=== PATIENT | male | born 1995 | race Caucasian/White ===

== ENCOUNTER 2017-04-07 23:39 | Emergency (ER) | payer BC, OTHER ==
[~2017-04-07] VITALS: Ht 188 cm; Wt 86.7 kg
[2017-04-07 23:43] VITALS: TEMP 36.5; Ht 188 cm; Wt 86.7 kg
[2017-04-08 00:01] VITALS: O2SAT 100
[2017-04-08 01:06] LABS: BUN/CREATININE RATIO 9.1 (10-20); CALCIUM 8.6 mg/dl (8.5-10.1); CREATININE 0.92 mg/dl (0.60-1.40); POTASSIUM 3.5 mmol/L (3.5-5.1)
[2017-04-08 06:21] VITALS: BP 96/50; PULSE 85; O2SAT 95
--- NOTE | 2017-04-08 06:35 | EMERGENCY ROOM VISIT NOTE ---
History Report prepared by Bree: Torie Gilliam Under the Supervision of: Dr. Marta Khoury D.O. First contact with patient: 23:36 Stated Complaint: ALCOHOL History of Present Illness The patient is a 21 year old male who presents to the Emergency Room with complaints of an episode of alcohol overdose occurring this evening. Per EMS, they were called to the [facility] for someone vomiting outside. EMS states that when they arrived he was there, but they do not believe he was the one that had been vomiting. The patient states that he drank four four locos. The patient denies vomiting, smoking, taking any drugs, and abdominal pain. HPI is limited secondary to alcohol intoxication. Source of History: patient, EMS History Limited By: intoxication Onset: this evening Position: other (global) Quality: other (global) Timing: other (episode) Associated Symptoms: No vomiting, No abdominal pain Review of Systems See HPI for pertinent positives & negatives. A total of 10 systems reviewed and were otherwise negative. Past Medical & Surgical Medical Problems: (1) No Known Active Medical Problems Family History No pertinent family history Social History Smoking Status: Never Smoker Alcohol Use: occasionally Drug Use: none Marital Status: single Housing Status: lives with roommate Occupation Status: [employer] Current/Historical Medications Unable to Obtain Active Prescriptions or Reported Meds Physical Exam Vital Signs Date Time Temp Pulse Resp B/P (MAP) Pulse Ox O2 Delivery O2 Flow Rate FiO2 04/08/17 06:21 85 18 96/50 95 Room Air 04/08/17 05:37 87 18 109/52 95 Room Air 04/08/17 04:00 71 04/08/17 03:36 79 18 122/72 98 Room Air 04/08/17 02:34 90 16 133/97 98 Room Air 04/08/17 01:19 117 16 141/86 96 Room Air 04/08/17 00:55 107 16 136/95 95 Room Air 04/08/17 00:01 100 Room Air 04/08/17 00:00 118 04/07/17 23:43 36.5 128 20 177/111 98 Room Air Physical Exam General: Confused, smells of alcohol, slightly uncooperative HEENT: Head - normocephalic and atraumatic Pupils are equal, round, 4 mm and sluggishly reactive to light. Extraocular eye muscles are intact, and sclera are anicteric. Nose - moist nasal mucosa without discharge. Mouth - moist buccal mucosa. Oropharynx is nonerythematous and there is no tonsillar exudate or edema noted. Neck: Supple; no JVD, nuchal rigidity, cervical lymphadenopathy. Heart: Tachycardic rate and regular rhythm. There is a normal S1 and S2 with no murmurs, clicks, or gallops appreciated. Lungs: Clear to auscultation bilaterally with no wheezes, rales, or rhonchi. Abdomen: Soft, completely nontender, nondistended, with good bowel sounds. There are no palpable pulsatile masses or hepatosplenomegaly. There is no guarding, rigidity, or rebound noted. Extremities: No evidence of cyanosis, clubbing, or edema. There are easily palpable peripheral pulses. Skin: warm and dry with good turgor and no rashes. Medical Decision & Procedures Laboratory Results 04/08/17 00:18 Test 04/08/17 00:18 Anion Gap 7.0 mmol/L (3-11) Est Creatinine Clear Calc Drug Dose 147.7 ml/min Estimated GFR () 137.3 Estimated GFR (Non- 118.5 BUN/Creatinine Ratio 9.1 (10-20) Calcium Level 8.6 mg/dl (8.5-10.1) Ethyl Alcohol mg/dL 373.0 mg/dl (0-3) Laboratory results per my review. ED Course 2339: Past medical records reviewed. The patient was evaluated in room A11B. A complete history and physical exam was performed. Labs were drawn as above. We made multiple attempts to attach the patient is a air sampling and monitoring and pulse oximeter but he refused. He also refused to lay in the prone position to avoid aspiration. 0027: I reevaluated the patient after the girlfriend was yelling for help due to the patient trying to get out of the bed. 0125: I spoke to the girlfriend and the patient is doing well. 0222: I reevaluated the patient and he is wide awake watching TV. His vitals are stable. 0417: I reevaluated the patient and he is sleeping. His vitals are stable. 0620: The patient is wide-awake and hemodynamically stable. I have reviewed with him his laboratory studies and explained that he would not be sober enough to drive a car until late this afternoon. I've encouraged him to avoid such excessive alcohol use in the future. Medical Decision The patient is a 21 year old male who presents to the Emergency Room with complaints of an episode of alcohol overdose occurring this evening. Differential diagnoses include alcohol overdose, drug intoxication, head injury , hypoglycemia. LABS: Alcohol 373 Normal renal function Glucose 118 The patient presents to the emergency department as an alcohol overdose. He was cooperative throughout his stay here in the emergency department. Once he was more sober, I had a conversation with him. I encouraged him to avoid such excessive alcohol use in the future. He should keep himself well-hydrated throughout the day today. He cannot drive a vehicle until later this afternoon. Impression Primary Impression: Alcohol overdose Scribe Attestation The scribe's documentation has been prepared under my direction and personally reviewed by me in its entirety. I confirm that the note above accurately reflects all work, treatment, procedures, and medical decision making performed by me. Departure Information Dispostion Home / Self-Care Prescriptions Unable to Obtain Active Prescriptions or Reported Meds Forms HOME CARE DOCUMENTATION FORM, IMPORTANT VISIT INFORMATION Additional Instructions Rest. Avoid such excessive alcohol use in the future. Take plenty of clear liquids USe tylenol for headaches Problem Qualifiers Primary Impression: Alcohol overdose Encounter type: initial encounter Injury intent: accidental or unintentional Qualified Codes: T51.91XA - Toxic effect of unspecified alcohol , accidental (unintentional), initial encounter
== END 2017-04-08 06:42 | disposition home or self-care (01) ==
LOC: C.EDA 23:42
DX: T51.91XA Toxic effect of unspecified alcohol, accidental (unintentional), initial encounter (principal); Y90.8 Blood alcohol level of 240 mg/100 ml or more